=== PATIENT | female | born 1965 | race Caucasian/White ===

== ENCOUNTER 2018-07-04 11:28 | Day surgery (SDC) | payer OTHER ==
[~2018-07-04] VITALS: Ht 162.6 cm; Wt 107.5 kg
[2018-07-04] MEDS ORDERED: ESTROGEN GEL TP (12:34)
[2018-07-04] MEDS ORDERED: VITAMIN B12 PO (12:34)
[2018-07-04] MEDS ORDERED: HYDR10TA4 PO (12:34)
[2018-07-04] MEDS ORDERED: VENL37.57 PO (12:34)
[2018-07-04] MEDS ORDERED: ETOD200C2 PO (12:34)
[2018-07-04] MEDS ORDERED: GABAPENTIN PO (12:34)
[2018-07-04] MEDS ORDERED: VITAMIN D PO (12:34)
[2018-07-04] MEDS ORDERED: MELATONIN PO (12:34)
[2018-07-04 12:35] VITALS: BP 121/75
[2018-07-04] MEDS ORDERED: ROPivacaine/PF 0.2%, 10 ML ONE (13:12)
[2018-07-04] MEDS ORDERED: LIDOCAINE-MPF 1%, 5ML ONE (13:12)
== END 2018-07-04 17:20 | disposition home or self-care (01) ==
LOC: OUT 11:28
PROVIDERS: ATTEND Family Medicine
DX: M51.86 Other intervertebral disc disorders, lumbar region (principal); M48.061 Spinal stenosis, lumbar region without neurogenic claudication; R20.2 Paresthesia of skin; Z88.1 Allergy status to other antibiotic agents; Z88.8 Allergy status to other drugs, medicaments and biological substances
CPT/HCPCS: 62284; 72126; 72129; 72132; Q9965; J2795